=== PATIENT | male | born 1995 | race Two or more races ===

== ENCOUNTER 2017-06-14 13:27 | Emergency (ER) | payer BC ==
[2017-06-14] MEDS ORDERED: Sodium Chloride 0.9% 10 ML Syringe FLUSH PRN ×2 (13:58→16:01)
[2017-06-14] MEDS ORDERED: Sodium Chloride 0.9% 1,000 ML IV STA (13:58)
[2017-06-14] MEDS ORDERED: Diatrizoate Meglumine/Diatrizoate Sodium 37% 120 ML Bottle PO ONE (16:01)
[2017-06-14] MEDS ORDERED: Iopamidol 612 MG/ML 150 ML Bottle IVPUSH ONE (16:01)
--- NOTE | 2017-06-14 17:28 | CT ---
CT abdomen and pelvis Technique: Multiple axial sections were obtained from above the dome of the diaphragm inferiorly through the pubic symphysis. Intravenous and oral contrast was utilized. Comparison: No previous abdominal imaging. Findings: Visualized lung bases shows nothing acute. Liver shows no focal parenchymal abnormality. Gallbladder contains no calcified gallstones. Spleen appears within normal limits. Adrenal glands show no nodule. Kidneys show symmetric contrast enhancement without hydronephrosis or mass. Pancreas is within normal limits. Aorta shows no aneurysmal dilatation. No retroperitoneal adenopathy is seen. No mesenteric abnormalities are seen. No free fluid or inflammatory change is seen. Appendix is seen which is normal in size. Impression: 1. No abnormality is identified on CT study of the abdomen and pelvis. Nothing acute is seen. Diagnostic code #1
--- NOTE | 2017-06-14 17:55 | EDM.PDOC ---
ED HPI GENERAL MEDICAL PROBLEM - General Chief Complaint: Abdominal Pain Stated Complaint: ABDOMINAL PAIN Time Seen by Provider: 06/14/17 13:46 Source of Information: Reports: Patient History Limitations: Reports: No Limitations - History of Present Illness INITIAL COMMENTS - FREE TEXT/NARRATIVE: The patient presents with RLQ abdominal pain. This started about 1 week ago. He has no nausea or vomiting but he has a decreased appetite. He has some diarrhea. He has no hernia. He still has a gallbladder and appendix. He went to [facility] and he had labs done and that looked good but no imaging. He says he feels it more when lifting heavy things. He wonders to if he has a hernia. Onset: Gradual Duration: Week(s): (1) Location: Reports: Abdomen Quality: Reports: Ache Severity: Moderate Improves with: Reports: Immobilization Worsens with: Reports: Movement Associated Symptoms: Reports: No Other Symptoms Right Abdomen Pain Score (Numeric/FACES): 4 - Related Data Allergies Allergy/AdvReac Type Severity Reaction Status Date / Time No Known Allergies Allergy Verified 06/14/17 13:46 Home Meds: Home Meds . [No Known Home Meds] 06/14/17 [History] Past Medical History - Past Health History Medical/Surgical History: Denies Medical/Surgical History Social & Family History - Tobacco Use Smoking Status *Q: Never Smoker - Caffeine Use Caffeine Use: Reports: Tea - Recreational Drug Use Recreational Drug Use: No ED ROS GENERAL - Review of Systems Review Of Systems: See Below Constitutional: Reports: No Symptoms HEENT: Reports: No Symptoms Respiratory: Reports: No Symptoms Cardiovascular: Reports: No Symptoms Endocrine: Reports: No Symptoms GI/Abdominal: Reports: Abdominal Pain (RLQ pain) : Reports: No Symptoms Musculoskeletal: Reports: No Symptoms ED EXAM, GI/ABD - Physical Exam Exam: See Below Exam Limited By: No Limitations General Appearance: Alert, No Apparent Distress Ears: Normal External Exam Nose: Normal Inspection Head: Atraumatic, Normocephalic Neck: Normal Inspection Respiratory/Chest: No Respiratory Distress, Lungs Clear, Normal Breath Sounds Cardiovascular: Regular Rate, Rhythm, No Edema, No Murmur GI/Abdominal Exam: Soft, No Organomegaly, No Mass, Tender (Mild to moderate pain upon palpation to the RLQ. No hernia is palpable) Course - Vital Signs Last Recorded V/S: Last Vital Signs Temp 98.1 F 06/14/17 14:40 Pulse 56 L 06/14/17 14:40 Resp 14 06/14/17 14:40 BP 108/60 06/14/17 14:40 Pulse Ox 100 06/14/17 14:40 - Orders/Labs/Meds Orders: Active Orders 24 hr Category Date Time Status Peripheral IV Care [RC] . DIRECTED Care 06/14/17 13:59 Active Sodium Chloride 0.9% [Saline Flush] Med 06/14/17 13:58 Active 10 ml FLUSH ASDIRECTED PRN Sodium Chloride 0.9% [Saline Flush] Med 06/14/17 16:01 Active 10 ml FLUSH ONETIME PRN Peripheral IV Insertion Adult [OM.PC] Stat Oth 06/14/17 13:58 Ordered Medication Orders Sodium Chloride (Saline Flush) 10 ml FLUSH ASDIRECTED PRN PRN Reason: Keep Vein Open Last Admin: 06/14/17 14:26 Dose: 10 ml Sodium Chloride (Saline Flush) 10 ml FLUSH ONETIME PRN PRN Reason: IV FLUSH Last Admin: 06/14/17 17:04 Dose: 10 ml Labs: Laboratory Tests 06/14/17 06/14/17 06/14/17 Range/Units 14:15 14:25 14:25 WBC 6.68 (4.23-9.07) K/mm3 RBC 5.37 (4.63-6.08) M/mm3 Hgb 15.8 (13.7-17.5) gm/L Hct 46.0 (40.1-51.0) % MCV 85.7 (79.0-92.2) fl MCH 29.4 (25.7-32.2) pg MCHC 34.3 (32.2-35.5) g/dl RDW Std Deviation 41.4 (35.1-43.9) fL Plt Count 245 (163-337) K/mm3 MPV 11.2 (9.4-12.3) fl Neut % (Auto) 66.0 (34.0-67.9) % Lymph % (Auto) 24.7 (21.8-53.1) % [place] % (Auto) 6.9 (5.3-12.2) % Eos % (Auto) 1.9 (0.8-7.0) Baso % (Auto) 0.4 (0.1-1.2) % Neut # (Auto) 4.40 (1.78-5.38) K/mm3 Lymph # (Auto) 1.65 (1.32-3.57) K/mm3 [place] # (Auto) 0.46 (0.30-0.82) K/mm3 Eos # (Auto) 0.13 (0.04-0.54) K/mm3 Baso # (Auto) 0.03 (0.01-0.08) K/mm3 Sodium 141 (136-145) mEq/L Potassium 4.0 (3.5-5.1) mEq/L Chloride 104 (98-107) mEq/L Carbon Dioxide 29 (21-32) mEq/L Anion Gap 12.0 (5-15) BUN 12 (7-18) mg/dL Creatinine 1.0 (0.7-1.3) mg/dL Est Cr Clr Drug Dosing TNP Estimated GFR (MDRD) > 60 (>60) mL/min BUN/Creatinine Ratio 12.0 L (14-18) Glucose 97 (74-106) mg/dL Calcium 9.3 (8.5-10.1) mg/dL Total Bilirubin 1.3 H (0.2-1.0) mg/dL AST 16 (15-37) U/L ALT 52 (16-63) U/L Alkaline Phosphatase 83 (46-116) U/L Total Protein 7.9 (6.4-8.2) g/dl Albumin 4.6 (3.4-5.0) g/dl Globulin 3.3 gm/dL Albumin/Globulin Ratio 1.4 (1-2) Lipase 96 (73-393) U/L Urine Color Light yellow (Yellow) Urine Appearance Clear (Clear) Urine pH 6.5 (5.0-8.0) Ur Specific [place] 1.020 (1.005-1.030) Urine Protein Negative (Negative) Urine Glucose (UA) Negative (Negative) Urine Ketones Negative (Negative) Urine Occult Blood Negative (Negative) Urine Nitrite Negative (Negative) Urine Bilirubin Negative (Negative) Urine Urobilinogen 0.2 (0.2-1.0) Ur Leukocyte Esterase Negative (Negative) Urine RBC Not seen (0-5) /hpf Urine WBC 0-5 (0-5) /hpf Ur Epithelial Cells 0-5 (0-5) /hpf Urine Bacteria Not seen (FEW) /hpf Urine Mucus Not seen (FEW) /hpf Meds: Medications Generic Name Dose Route Start Last Admin Trade Name Freneeru PRN Reason Stop Dose Admin Sodium Chloride 10 ml 06/14/17 13:58 06/14/17 14:26 Saline Flush FLUSH 10 ml ASDIRECTED PRN Administration Keep Vein Open Sodium Chloride 10 ml 06/14/17 16:01 06/14/17 17:04 Saline Flush FLUSH 10 ml ONETIME PRN Administration IV FLUSH Discontinued Medications Generic Name Dose Route Start Last Admin Trade Name Freq PRN Reason Stop Dose Admin Diatrizoate Meglum/Diatrizoate Sod 90 ml 06/14/17 16:01 06/14/17 17:03 Gastrografin 37% PO 06/14/17 16:02 90 ml ONETIME ONE Administration Sodium Chloride 1,000 mls @ 1,000 mls/hr 06/14/17 13:58 06/14/17 14:26 Normal Saline IV 06/14/17 14:57 1,000 mls/hr .BOLUS STA Administration Iopamidol 125 ml 06/14/17 16:01 06/14/17 17:04 Isovue-300 (61%) IVPUSH 06/14/17 16:02 125 ml ONETIME ONE Administration - Re-Assessments/Exams Free Text/Narrative Re-Assessment/Exam: 06/14/17 17:53 I ordered an IV NS 1L bolus, labs, UA and CT of his abdomen and pelvis. His CBC and CMP look good. His UA shows no UTI. His CT shows no abnormality is identified on CT study of the abdomen and pelvis. Nothing acute is seen. He feels better. He may have an abdominal muscle strain. Departure - Departure Time of Disposition: 17:55 Disposition: Home, Self-Care 01 Condition: Good Clinical Impression: Abdominal pain Qualifiers: Abdominal location: right lower quadrant Qualified Code(s): R10.31 - Right lower quadrant pain - Discharge Information Referrals: PCP,None [Primary Care Provider] - Forest Jimenez MD [Physician] - 1 Week Additional Instructions: Take motrin or aleve for pain. Drink plenty of fluids. Do not lift anything heavy for a few days. Follow up with Dr [email or web address] our general surgeon if you are not better within 1 week. - My Orders Last 24 Hours: My Active Orders 06/14/17 13:58 Sodium Chloride 0.9% [Saline Flush] 10 ml FLUSH ASDIRECTED PRN Peripheral IV Insertion Adult [OM.PC] Stat 06/14/17 13:59 Peripheral IV Care [RC] . DIRECTED 06/14/17 16:01 Sodium Chloride 0.9% [Saline Flush] 10 ml FLUSH ONETIME PRN - Assessment/Plan Last 24 Hours: My Active Orders 06/14/17 13:58 Sodium Chloride 0.9% [Saline Flush] 10 ml FLUSH ASDIRECTED PRN Peripheral IV Insertion Adult [OM.PC] Stat 06/14/17 13:59 Peripheral IV Care [RC] . DIRECTED 06/14/17 16:01 Sodium Chloride 0.9% [Saline Flush] 10 ml FLUSH ONETIME PRN
== END 2017-06-14 18:05 | disposition home or self-care (01) ==
LOC: JD.ED 13:27
DX: R10.31 Right lower quadrant pain (principal)
CPT/HCPCS: 36415; 74177; 80053; 81001; 83690; 85025; 96360; 96361; 99284; J7040; J7050; Q9963; Q9967